=== PATIENT | male | born 1970 | race Caucasian/White ===

== ENCOUNTER 2017-03-29 09:34 | Emergency (ER) | payer SELFPAY ==
[~2017-03-29] VITALS: Ht 188 cm; Wt 146.0 kg
[2017-03-29 11:27] LABS: EOSINOPHIL COUNT 0.2 K/uL (0-0.3); HEMATOCRIT 49.5 % (38.0-50.0); IMMATURE GRANULOCYTE (%) 0.4 % (0.0-0.7); INSTRUMENT ABS NEUTROPHIL CT 7.3 K/uL; LYMPHOCYTE COUNT 1.6 K/uL (1.0-2.8); MCH 29.6 PG (29.0-34.0); MCHC 33.9 G/DL (30.0-36.0); MCV 87.1 FL (86-99); MEAN PLAT.VOLUME 13.1 uM^3 (9.0-12.4); MONOCYTE (%) 12.5 % (3-12); MONOCYTE COUNT 1.3 K/uL (0-0.8); NEUTROPHIL (%) 69.6 % (45-76); NEUTROPHIL COUNT 7.3 K/uL (1.8-6.4); PLATELET COUNT 117 K/uL (156-360); RBC DIS.WIDTH-CV 13.1 % (11.8-14.6); RBC DIS.WIDTH-SD 41.5 % (39-53); RED BLOOD COUNT 5.68 M/uL (4.00-5.50); WHITE BLOOD COUNT 10.4 K/uL (4.1-10.2)
[2017-03-29 11:33] LABS: INTER. NORMALIZED RATIO 1.2; PROTHROMBIN TIME 12.9 SEC (10.2-12.9)
[2017-03-29 11:38] LABS: CHLORIDE 103 mEq/L (99-109); POTASSIUM 3.5 mEq/L (3.7-5.4); SODIUM 136 mEq/L (136-147)
[2017-03-29 11:40] LABS: GLUCOSE 94 mg/dL (70-99)
[2017-03-29 11:41] LABS: ANION GAP 12 MEQ/L (2-14)
[2017-03-29 11:44] LABS: GFR ESTIMATE (CALCULATED) > 59 mL/min/
[2017-03-29 11:45] LABS: UREA NITROGEN (BUN) 6 mg/dL (9-23)
[2017-03-29] MEDS ORDERED: XARELTO15 MG PO ×3 (13:44→13:55)
[2017-03-29 14:06] VITALS: BP 131/81
== END 2017-03-29 14:07 | disposition home or self-care (01) ==
LOC: EME 09:34
PROVIDERS: Physician Assistant
DX: I82.442 Acute embolism and thrombosis of left tibial vein (principal); I82.4Z2 Acute embolism and thrombosis of unspecified deep veins of left distal lower extremity; Z86.718 Personal history of other venous thrombosis and embolism; F17.210 Nicotine dependence, cigarettes, uncomplicated
CPT/HCPCS: 80048; 85025; 85610; 93971; 99281; 99284